=== PATIENT | male | born 1985 | race Caucasian/White ===

== ENCOUNTER 2016-10-22 14:01 | Inpatient (IN) | payer OTHER ==
[~2016-10-22] VITALS: Ht 185.4 cm; Wt 108.2 kg
[2016-10-22] MEDS ORDERED: WELLBUTRIN XL150 MG PO (14:51)
[2016-10-22] MEDS ORDERED: SEROQUEL400 MG PO (14:51)
[2016-10-22] MEDS ORDERED: GABAPENTIN300 MG PO (14:51)
[2016-10-22 14:59] LABS: AMPHETAMINE NEGATIVE (500 ng/mL); BARBITURATES PRESUMPTIVE POSITIVE (200 ng/mL); BENZODIAZEPINES NEGATIVE (150 ng/mL); COCAINE PRESUMPTIVE POSITIVE (150 ng/mL); METHADONE NEGATIVE (200 ng/mL); METHAMPHETAMINE NEGATIVE (500 ng/mL); OPIATES (MORPHINE) PRESUMPTIVE POSITIVE (100 ng/mL); OXYCODONE NEGATIVE (100 ng/mL); PHENCYCLIDINE NEGATIVE (25 ng/mL); PROPOXYPHENE NEGATIVE (300 ng/mL); THC CANNABINOIDS NEGATIVE (50 ng/mL); TRICYCLIC ANTIDEPRESSANTS PRESUMPTIVE POSITIVE (300 ng/mL)
[2016-10-22 15:00] LABS: EOSINOPHIL (%) 3.2 % (0-5); EOSINOPHIL COUNT 0.2 K/uL (0-0.3); HEMATOCRIT 40.9 % (38.0-50.0); IMMATURE GRANULOCYTE (%) 0.3 % (0.0-0.7); INSTRUMENT ABS NEUTROPHIL CT 4.4 K/uL; MCH 29.5 PG (29.0-34.0); MCV 86.8 FL (86-99); MEAN PLAT.VOLUME 9.6 uM^3 (9.0-12.4); MONOCYTE (%) 7.7 % (3-12); MONOCYTE COUNT 0.6 K/uL (0-0.8); NEUTROPHIL (%) 60.8 % (45-76); NEUTROPHIL COUNT 4.4 K/uL (1.8-6.4); PLATELET COUNT 211 K/uL (156-360); RBC DIS.WIDTH-CV 11.9 % (11.8-14.6); RBC DIS.WIDTH-SD 38.5 % (39-53); RED BLOOD COUNT 4.71 M/uL (4.00-5.50); WHITE BLOOD COUNT 7.2 K/uL (4.1-10.2)
[2016-10-22 15:00] LABS: ADD MEDTOX COMMENT Y; INTERNAL CONTROLS VALID? YES
[2016-10-22 15:08] LABS: CHLORIDE 105 mEq/L (99-109); POTASSIUM 3.8 mEq/L (3.7-5.4); SODIUM 141 mEq/L (136-147)
[2016-10-22 15:11] LABS: GLUCOSE 88 mg/dL (70-99)
[2016-10-22 15:12] LABS: ANION GAP 12 MEQ/L (2-14); TOTAL BILIRUBIN 0.4 mg/dL (0.0-1.0)
[2016-10-22 15:14] LABS: ALKALINE PHOSPHATASE 85 IU/L (3-129); SERUM ETHYL ALCOHOL < 10 mg/dL
[2016-10-22 15:15] LABS: UREA NITROGEN (BUN) 12 mg/dL (9-23)
[2016-10-22 15:19] LABS: GFR ESTIMATE (CALCULATED) > 59 mL/min/
[2016-10-22 17:41] VITALS: BP 155/96
[2016-10-22] MEDS ORDERED: NEURONTIN600 MG PO (18:41)
[2016-10-22] MEDS ORDERED: SUBOXONE 8 MG-1 EAC2 SL ×2 (18:43→18:44)
[2016-10-22] MEDS ORDERED: LORAZEPAM1 MG PO (18:43)
[2016-10-23 07:53] VITALS: BP 119/61
[2016-10-23 15:17] VITALS: BP 110/57
[2016-10-24 07:31] VITALS: BP 122/66
[2016-10-24 15:46] VITALS: BP 136/69
[2016-10-25 07:30] VITALS: BP 122/75
[2016-10-25 15:38] VITALS: BP 145/87
[2016-10-26 07:19] VITALS: BP 129/82
[2016-10-26 15:42] VITALS: BP 145/83
[2016-10-27 07:47] VITALS: BP 115/66
== END 2016-10-27 13:16 | disposition other institution (70) | DRG 885 ==
LOC: EME 14:01 → EDOF 16:03 → 1WEST 16:03 → ENRESERV 16:53 → 1WEST 17:33
PROVIDERS: Emergency Medicine
PROC: HZ2ZZZZ Detoxification Services for Substance Abuse Treatment (ICD-10-PCS; principal; 2016-10-22)
DX: F25.1 Schizoaffective disorder, depressive type (principal); F11.23 Opioid dependence with withdrawal; F13.239 Sedative, hypnotic or anxiolytic dependence with withdrawal, unspecified; F14.20 Cocaine dependence, uncomplicated; F33.9 Major depressive disorder, recurrent, unspecified; R45.851 Suicidal ideations; F17.210 Nicotine dependence, cigarettes, uncomplicated; Z91.5 Personal history of self-harm; Z81.8 Family history of other mental and behavioral disorders; Z88.5 Allergy status to narcotic agent; Z91.012 Allergy to eggs; Z91.018 Allergy to other foods; Z56.0 Unemployment, unspecified
CPT/HCPCS: 80053; 84999; 85025; 90839; 99281; 99285; G0480; J0572; J0574; Q0169